=== PATIENT | male | born 1930 | race Caucasian/White ===

== ENCOUNTER 2016-12-06 01:23 | Inpatient (IN) | payer OTHER ==
[~2016-12-06] VITALS: Ht 165.1 cm; Wt 62.2 kg
[~2016-12-06 01:23] MED LIST: AMOX1TAB61 PO; ASPI325T4 PO; ATOR20TA9 PO; CARV3.122 PO; FURO20TA3 PO; LISI5TAB7 PO; POTA20PA8 PO
[2016-12-06] MEDS ORDERED: SODIUM CHLORIDE 0.9% 1,000 ML IV ONE (01:49)
[2016-12-06] MEDS ORDERED: SODIUM CHLORIDE FLUSH 10ML SYR IVF ONE (02:00)
[2016-12-06 02:41] LABS: BLOOD UREA NITROGEN 26 mg/dL (7-18)
[2016-12-06 02:43] LABS: ASPARTATE AMINO TRANSFERASE 40 U/L (15-37)
[2016-12-06 02:46] LABS: IS PT STATUS REG ER OR PRE ER? YES
[2016-12-06] MEDS ORDERED: CEFAZOLIN PMX 1GM/50ML 50 ML ONE (02:46)
[2016-12-06] MEDS ORDERED: CEFAZOLIN PMX 1GM/50ML 50 ML IV ONE (03:00)
[2016-12-06] MEDS ORDERED: ASPIRIN 325 MG TABLET PO ONE (03:00)
[2016-12-06] MEDS ORDERED: FUROSEMIDE 40 MG/4 ML IV ONE (03:30)
[2016-12-06] MEDS ORDERED: FUROSEMIDE 40 MG/4 ML ONE (03:40)
[2016-12-06] MEDS ORDERED: ASPIRIN 325 MG TABLET ONE (03:40)
[2016-12-06] MEDS ORDERED: DOCUSATE 100 MG CAPSULE PO PRN (04:00)
[2016-12-06] MEDS ORDERED: POLYETHYLENE GLYCOL 17 GM PACKET PO PRN (04:00)
[2016-12-06] MEDS ORDERED: ACETAMINOPHEN 325 MG TABLET PO PRN (04:00)
[2016-12-06] MEDS ORDERED: ONDANSETRON 2MG/ML, 2ML IVP PRN (04:00)
[2016-12-06] MEDS ORDERED: BISACODYL 10 MG SUPP PR PRN (04:00)
[2016-12-06] MEDS ORDERED: ENOXAPARIN 40 MG/0.4 ML ONE (04:01)
[2016-12-06] MEDS: ENOXAPARIN 40 MG/0.4 ML SQ SCH (04:07)
[2016-12-06 05:30] VITALS: BP 101/53
[2016-12-06] MEDS ORDERED: CARVEDILOL 3.125 MG TABLET PO SCH (06:00)
[2016-12-06 08:20] VITALS: BP 98/60
[2016-12-06 09:00] LABS: IS PT STATUS REG ER OR PRE ER? NO
[2016-12-06] MEDS ORDERED: CEFTAROLINE 600 MG in SODIUM CHLORIDE 0.9% 100 ML IV SCH (09:00)
[2016-12-06] MEDS ORDERED: LISINOPRIL 5 MG TABLET PO SCH (09:00)
[2016-12-06] MEDS: ASPIRIN 81 MG TABLET EC PO SCH (09:08)
[2016-12-06] MEDS: FUROSEMIDE 20 MG/2 ML IV SCH (09:11)
[2016-12-06] MEDS: SODIUM CHLORIDE FLUSH 10ML SYR IVF SCH ×2 (09:11→20:16)
[2016-12-06] MEDS: CEFTRIAXONE PMX 1GM/50ML 50 ML IV SCH (13:03)
[2016-12-06 13:28] VITALS: BP 91/41
[2016-12-06 13:34] VITALS: BP 92/57
[2016-12-06 16:06] LABS: IS PT STATUS REG ER OR PRE ER? NO
[2016-12-06 16:29] VITALS: BP 86/44
[2016-12-06] MEDS: CARVEDILOL 3.125 MG TABLET PO SCH (16:33)
[2016-12-06 20:00] VITALS: BP 94/50
[2016-12-06] MEDS: ATORVASTATIN 40 MG TABLET PO SCH (20:14)
[2016-12-07] VITALS (8 sets, daily range): BP systolic 75–108; BP diastolic 44–69
[2016-12-07] MEDS ORDERED: SODIUM CHLORIDE 0.9%, 500ML IVBOLUS ONE (05:00)
[2016-12-07 05:22] LABS: BLOOD UREA NITROGEN 25 mg/dL (7-18)
[2016-12-07] MEDS: CARVEDILOL 3.125 MG TABLET PO SCH ×2 (05:28→18:00)
[2016-12-07] MEDS: ENOXAPARIN 40 MG/0.4 ML SQ SCH (05:28)
[2016-12-07] MEDS: LISINOPRIL 5 MG TABLET PO SCH (09:00)
[2016-12-07] MEDS: FUROSEMIDE 20 MG/2 ML IV SCH (09:00)
[2016-12-07] MEDS ORDERED: DOPAMINE/D5W PMX 250 ML IV SCH (09:00)
[2016-12-07] MEDS: CEFTRIAXONE PMX 1GM/50ML 50 ML IV SCH (13:12)
[2016-12-07] MEDS: SODIUM CHLORIDE FLUSH 10ML SYR IVF SCH ×2 (13:18→22:45)
[2016-12-07] MEDS: ASPIRIN 81 MG TABLET EC PO SCH (13:18)
[2016-12-07] MEDS: ATORVASTATIN 40 MG TABLET PO SCH (21:11)
[2016-12-08] MEDS ORDERED: SODIUM CHLORIDE 0.9% 1,000 ML IV SCH (01:30)
[2016-12-08 04:48] LABS: BLOOD UREA NITROGEN 23 mg/dL (7-18)
[2016-12-08] MEDS: CARVEDILOL 3.125 MG TABLET PO SCH ×2 (05:43→17:29)
[2016-12-08] MEDS: ENOXAPARIN 40 MG/0.4 ML SQ SCH (05:43)
[2016-12-08] MEDS ORDERED: SODIUM CHLORIDE 0.9% 250 ML IV ONE (09:00)
[2016-12-08] MEDS ORDERED: DOPAMINE/D5W PMX 250 ML IV SCH (09:00)
[2016-12-08] MEDS: LISINOPRIL 5 MG TABLET PO SCH (09:00)
[2016-12-08] MEDS: DOPAMINE/D5W PMX 250 ML IV SCH ×2 (09:29→17:35)
[2016-12-08] MEDS: SODIUM CHLORIDE FLUSH 10ML SYR IVF SCH ×2 (11:27→22:45)
[2016-12-08] MEDS ORDERED: SODIUM CHLORIDE 0.9%, 250ML IVBOLUS ONE ×3 (11:30→17:30)
[2016-12-08] MEDS: FUROSEMIDE 20 MG/2 ML IV SCH (11:52)
[2016-12-08] MEDS: ASPIRIN 81 MG TABLET CHEW PO SCH (11:53)
[2016-12-08] MEDS: CEFTRIAXONE PMX 1GM/50ML 50 ML IV SCH (11:54)
[2016-12-08] MEDS: ATORVASTATIN 40 MG TABLET PO SCH (22:43)
[2016-12-09] MEDS: AMPICILLIN 2 GM in SODIUM CHLORIDE 0.9% 100 ML IV SCH ×5 (00:09→23:44)
[2016-12-09 04:45] LABS: BLOOD UREA NITROGEN 23 mg/dL (7-18)
[2016-12-09 04:51] LABS: ASPARTATE AMINO TRANSFERASE 24 U/L (15-37); IS PT STATUS REG ER OR PRE ER? NO
[2016-12-09] MEDS: DOPAMINE/D5W PMX 250 ML IV SCH (05:26)
[2016-12-09] MEDS: ENOXAPARIN 40 MG/0.4 ML SQ SCH (05:36)
[2016-12-09] MEDS ORDERED: VASOPRESSIN 100 UNIT in SODIUM CHLORIDE 0.9% 495 ML IV PRN (09:00)
[2016-12-09] MEDS ORDERED: MAGNESIUM SULFATE PMX 2GM/50ML 50 ML IVPB ONE (09:00)
[2016-12-09] MEDS ORDERED: NOREPINEPHRINE 4 MG in SODIUM CHLORIDE 0.9% 246 ML IV PRN (09:00)
[2016-12-09] MEDS: ASPIRIN 81 MG TABLET CHEW PO SCH (10:00)
[2016-12-09] MEDS: INSULIN ASPART 100 UNITS/ML, PEN SQ-INSULIN SCH ×4 (10:28→20:40)
[2016-12-09] MEDS: SODIUM CHLORIDE FLUSH 10ML SYR IVF SCH ×2 (12:45→20:34)
[2016-12-09] MEDS ORDERED: NOREPINEPHRINE 8 MG in SODIUM CHLORIDE 0.9% 242 ML IV PRN (16:30)
[2016-12-09] MEDS ORDERED: SODIUM CHLORIDE 0.9%, 250ML IVBOLUS ONE (17:30)
[2016-12-09] MEDS: HYDROCORTISONE 100 MG INJ. IVPush SCH (20:31)
[2016-12-09] MEDS: ATORVASTATIN 40 MG TABLET PO SCH (20:33)
[2016-12-10] MEDS ORDERED: SODIUM CHLORIDE 0.9% 1,000 ML IV SCH (01:30)
[2016-12-10 06:25] LABS: BLOOD UREA NITROGEN 19 mg/dL (7-18)
[2016-12-10 06:39] LABS: ASPARTATE AMINO TRANSFERASE 20 U/L (15-37)
[2016-12-10] MEDS: AMPICILLIN 2 GM in SODIUM CHLORIDE 0.9% 100 ML IV SCH ×3 (06:42→17:49)
[2016-12-10] MEDS: ENOXAPARIN 40 MG/0.4 ML SQ SCH (06:42)
[2016-12-10] MEDS: HYDROCORTISONE 100 MG INJ. IVPush SCH ×3 (08:52→23:55)
[2016-12-10] MEDS: INSULIN ASPART 100 UNITS/ML, PEN SQ-INSULIN SCH ×4 (08:52→21:30)
[2016-12-10] MEDS ORDERED: POTASSIUM CHLORIDE 20 MEQ TAB.ER.PRT PO ONE (10:30)
[2016-12-10] MEDS: ASPIRIN 81 MG TABLET CHEW PO SCH (10:33)
[2016-12-10] MEDS: SODIUM CHLORIDE FLUSH 10ML SYR IVF SCH ×2 (10:34→21:24)
[2016-12-10] MEDS: FUROSEMIDE 20 MG/2 ML IV SCH ×2 (10:34→18:40)
[2016-12-10] MEDS: MEGESTROL ORAL.SUSP 40 MG/ML PO SCH (11:30)
[2016-12-10] MEDS: ATORVASTATIN 40 MG TABLET PO SCH (21:24)
[2016-12-11] MEDS: AMPICILLIN 2 GM in SODIUM CHLORIDE 0.9% 100 ML IV SCH ×4 (00:09→21:15)
[2016-12-11] MEDS: ENOXAPARIN 40 MG/0.4 ML SQ SCH (04:06)
[2016-12-11] MEDS: FUROSEMIDE 20 MG/2 ML IV SCH ×4 (04:06→21:12)
[2016-12-11 04:30] VITALS: BP 110/55
[2016-12-11 06:35] LABS: BLOOD UREA NITROGEN 17 mg/dL (7-18)
[2016-12-11 06:38] LABS: ASPARTATE AMINO TRANSFERASE 28 U/L (15-37)
[2016-12-11] MEDS: INSULIN ASPART 100 UNITS/ML, PEN SQ-INSULIN SCH ×4 (07:00→21:09)
[2016-12-11] MEDS ORDERED: MAGNESIUM SULFATE PMX 2GM/50ML 50 ML IV ONE (08:00)
[2016-12-11] MEDS: HYDROCORTISONE 100 MG INJ. IVPush SCH ×2 (08:44→17:07)
[2016-12-11] MEDS: ASPIRIN 81 MG TABLET CHEW PO SCH (08:44)
[2016-12-11] MEDS: MEGESTROL ORAL.SUSP 40 MG/ML PO SCH (08:44)
[2016-12-11] MEDS: SODIUM CHLORIDE FLUSH 10ML SYR IVF SCH ×2 (08:45→21:16)
[2016-12-11 11:00] VITALS: BP 104/64
[2016-12-11 19:39] VITALS: BP 109/62
[2016-12-11] MEDS: ATORVASTATIN 40 MG TABLET PO SCH (21:04)
[2016-12-12] MEDS: HYDROCORTISONE 100 MG INJ. IVPush SCH ×3 (00:46→18:03)
[2016-12-12] MEDS: FUROSEMIDE 20 MG/2 ML IV SCH ×3 (01:45→20:02)
[2016-12-12] MEDS: AMPICILLIN 2 GM in SODIUM CHLORIDE 0.9% 100 ML IV SCH ×4 (01:45→20:05)
[2016-12-12 02:02] VITALS: BP 111/67
[2016-12-12] MEDS: ENOXAPARIN 40 MG/0.4 ML SQ SCH (04:09)
[2016-12-12 06:00] LABS: BLOOD UREA NITROGEN 17 mg/dL (7-18)
[2016-12-12 07:26] VITALS: BP 115/61
[2016-12-12] MEDS: INSULIN ASPART 100 UNITS/ML, PEN SQ-INSULIN SCH ×4 (08:29→21:00)
[2016-12-12] MEDS: SODIUM CHLORIDE FLUSH 10ML SYR IVF SCH ×2 (08:31→21:43)
[2016-12-12] MEDS: ASPIRIN 81 MG TABLET CHEW PO SCH (08:32)
[2016-12-12] MEDS: MEGESTROL ORAL.SUSP 40 MG/ML PO SCH (08:32)
[2016-12-12] MEDS ORDERED: POTASSIUM CHLORIDE 20 MEQ TAB.ER.PRT PO ONE (12:00)
[2016-12-12 13:03] VITALS: BP 99/55
[2016-12-12 19:43] VITALS: BP 116/69
[2016-12-12] MEDS: ATORVASTATIN 40 MG TABLET PO SCH (21:43)
[2016-12-13 01:40] VITALS: BP 114/61
[2016-12-13] MEDS: HYDROCORTISONE 100 MG INJ. IVPush SCH ×2 (02:13→11:24)
[2016-12-13] MEDS: AMPICILLIN 2 GM in SODIUM CHLORIDE 0.9% 100 ML IV SCH ×4 (02:14→20:57)
[2016-12-13] MEDS: FUROSEMIDE 20 MG/2 ML IV SCH (04:17)
[2016-12-13] MEDS: ENOXAPARIN 40 MG/0.4 ML SQ SCH (04:17)
[2016-12-13] MEDS: INSULIN ASPART 100 UNITS/ML, PEN SQ-INSULIN SCH ×4 (07:00→20:57)
[2016-12-13 07:05] VITALS: BP 105/65
[2016-12-13] MEDS: ASPIRIN 81 MG TABLET CHEW PO SCH (08:13)
[2016-12-13] MEDS: MEGESTROL ORAL.SUSP 40 MG/ML PO SCH (08:13)
[2016-12-13] MEDS: SODIUM CHLORIDE FLUSH 10ML SYR IVF SCH ×2 (08:14→20:57)
[2016-12-13 12:57] LABS: ASPARTATE AMINO TRANSFERASE 38 U/L (15-37); BLOOD UREA NITROGEN 21 mg/dL (7-18)
[2016-12-13 13:25] VITALS: BP 103/52
[2016-12-13] MEDS: FUROSEMIDE 20 MG TABLET PO SCH (17:08)
[2016-12-13 18:51] VITALS: BP 100/54
[2016-12-13] MEDS: DRONABINOL 2.5 MG CAPSULE PO SCH (20:57)
[2016-12-13] MEDS: ATORVASTATIN 40 MG TABLET PO SCH (20:57)
[2016-12-14 01:08] VITALS: BP 100/62
[2016-12-14] MEDS: AMPICILLIN 2 GM in SODIUM CHLORIDE 0.9% 100 ML IV SCH ×4 (02:35→20:35)
[2016-12-14] MEDS: ENOXAPARIN 40 MG/0.4 ML SQ SCH (05:23)
[2016-12-14 05:57] LABS: ASPARTATE AMINO TRANSFERASE 34 U/L (15-37); BLOOD UREA NITROGEN 24 mg/dL (7-18)
[2016-12-14] MEDS: INSULIN ASPART 100 UNITS/ML, PEN SQ-INSULIN SCH ×4 (07:00→20:36)
[2016-12-14 08:37] VITALS: BP 110/61
[2016-12-14] MEDS: SODIUM CHLORIDE FLUSH 10ML SYR IVF SCH ×2 (09:00→20:35)
[2016-12-14] MEDS ORDERED: MAGNESIUM SULFATE PMX 2GM/50ML 50 ML IV ONE (09:00)
[2016-12-14] MEDS ORDERED: POTASSIUM CHLORIDE 20 MEQ PACKET PO ONE (09:00)
[2016-12-14] MEDS: ASPIRIN 81 MG TABLET CHEW PO SCH (09:37)
[2016-12-14] MEDS: FUROSEMIDE 20 MG TABLET PO SCH ×2 (09:37→18:03)
[2016-12-14] MEDS: DRONABINOL 2.5 MG CAPSULE PO SCH ×2 (09:37→20:46)
[2016-12-14] MEDS: TAMSULOSIN 0.4 MG CAP.ER.24H PO SCH (10:39)
[2016-12-14] MEDS: POTASSIUM CHLORIDE 20 MEQ PACKET PO SCH ×2 (13:09→20:35)
[2016-12-14 14:34] VITALS: BP_SYST 110; BP_SYST 111; BP_SYST 120; BP_DIAS 60; BP_DIAS 66; BP_DIAS 70
[2016-12-14] MEDS: METRONIDAZOLE PMX 500MG/100ML 100 ML IV SCH ×2 (16:13→22:43)
[2016-12-14 16:43] LABS: BLOOD UREA NITROGEN 27 mg/dL (7-18)
[2016-12-14 19:01] VITALS: BP 94/60
[2016-12-14] MEDS: ATORVASTATIN 40 MG TABLET PO SCH (20:35)
[2016-12-15 01:47] VITALS: BP 89/55
[2016-12-15] MEDS: AMPICILLIN 2 GM in SODIUM CHLORIDE 0.9% 100 ML IV SCH ×2 (02:07→08:17)
[2016-12-15] MEDS: ENOXAPARIN 40 MG/0.4 ML SQ SCH (05:58)
[2016-12-15] MEDS: METRONIDAZOLE PMX 500MG/100ML 100 ML IV SCH ×4 (06:00→23:07)
[2016-12-15 06:10] LABS: BLOOD UREA NITROGEN 29 mg/dL (7-18)
[2016-12-15 06:15] LABS: ASPARTATE AMINO TRANSFERASE 52 U/L (15-37)
[2016-12-15] MEDS: INSULIN ASPART 100 UNITS/ML, PEN SQ-INSULIN SCH ×4 (07:00→23:07)
[2016-12-15] MEDS: POTASSIUM CHLORIDE 20 MEQ PACKET PO SCH ×2 (08:16→23:07)
[2016-12-15] MEDS: TAMSULOSIN 0.4 MG CAP.ER.24H PO SCH (08:16)
[2016-12-15] MEDS: DRONABINOL 2.5 MG CAPSULE PO SCH ×2 (08:16→23:07)
[2016-12-15] MEDS: ASPIRIN 81 MG TABLET CHEW PO SCH (08:17)
[2016-12-15] MEDS: FUROSEMIDE 20 MG TABLET PO SCH ×2 (08:17→16:01)
[2016-12-15] MEDS: SODIUM CHLORIDE FLUSH 10ML SYR IVF SCH ×2 (08:17→23:08)
[2016-12-15 08:26] VITALS: BP 93/57
[2016-12-15] MEDS: VANCOMYCIN 50 MG/ML ORAL SUSP PO SCH ×3 (10:05→23:07)
[2016-12-15 12:38] VITALS: BP 99/61
[2016-12-15 20:19] VITALS: BP 107/66
[2016-12-15] MEDS: ATORVASTATIN 40 MG TABLET PO SCH (23:06)
[2016-12-16 02:24] VITALS: BP 109/64
[2016-12-16] MEDS: VANCOMYCIN 50 MG/ML ORAL SUSP PO SCH ×2 (03:45→08:22)
[2016-12-16] MEDS: METRONIDAZOLE PMX 500MG/100ML 100 ML IV SCH (05:34)
[2016-12-16] MEDS: ENOXAPARIN 40 MG/0.4 ML SQ SCH (05:34)
[2016-12-16 05:56] LABS: BLOOD UREA NITROGEN 29 mg/dL (7-18)
[2016-12-16 07:08] VITALS: BP 106/58
[2016-12-16] MEDS: INSULIN ASPART 100 UNITS/ML, PEN SQ-INSULIN SCH ×2 (08:21→12:08)
[2016-12-16] MEDS: ASPIRIN 81 MG TABLET CHEW PO SCH (08:22)
[2016-12-16] MEDS: SODIUM CHLORIDE FLUSH 10ML SYR IVF SCH (08:22)
[2016-12-16] MEDS: TAMSULOSIN 0.4 MG CAP.ER.24H PO SCH (08:22)
[2016-12-16] MEDS: DRONABINOL 2.5 MG CAPSULE PO SCH (08:22)
[2016-12-16] MEDS: POTASSIUM CHLORIDE 20 MEQ PACKET PO SCH (08:22)
[2016-12-16] MEDS: FUROSEMIDE 20 MG TABLET PO SCH (08:22)
[2016-12-16] MEDS ORDERED: ASPI-515 PO (10:22)
[2016-12-16] MEDS ORDERED: DRON2.5C2 PO (10:22)
[2016-12-16] MEDS ORDERED: METR500T PO (10:22)
[2016-12-16] MEDS ORDERED: ATOR40TA78 PO (10:22)
[2016-12-16] MEDS ORDERED: FURO20TA3 PO (10:22)
[2016-12-16] MEDS ORDERED: TAMS-11 PO (10:22)
[2016-12-16] MEDS ORDERED: AMOX-291 PO (10:36)
[2016-12-16] MEDS ORDERED: POTA10TA11 PO (10:38)
[2016-12-16 12:24] VITALS: BP 103/57
== END 2016-12-16 14:30 | DRG 871 ==
LOC: ED 02:45 → EDIP 03:12 → 5SO 05:18 → CCU 12-07 23:54 → 4EST 12-11 10:53
PROC: 0T9B70Z Drainage of Bladder with Drainage Device, Via Natural or Artificial Opening (ICD-10-PCS; principal; 2016-12-06)
PROC: 02HV33Z Insertion of Infusion Device into Superior Vena Cava, Percutaneous Approach (ICD-10-PCS; 2016-12-08)
PROC: B548ZZA Ultrasonography of Superior Vena Cava, Guidance (ICD-10-PCS; 2016-12-08)
DX: A41.9 Sepsis, unspecified organism (principal); I50.43 Acute on chronic combined systolic (congestive) and diastolic (congestive) heart failure; E43 Unspecified severe protein-calorie malnutrition; L03.115 Cellulitis of right lower limb; N39.0 Urinary tract infection, site not specified; R64 Cachexia; A04.7 Enterocolitis due to Clostridium difficile; B95.2 Enterococcus as the cause of diseases classified elsewhere; I11.0 Hypertensive heart disease with heart failure; E11.9 Type 2 diabetes mellitus without complications; I25.10 Atherosclerotic heart disease of native coronary artery without angina pectoris; R13.10 Dysphagia, unspecified; R47.81 Slurred speech; I25.2 Old myocardial infarction; I25.5 Ischemic cardiomyopathy; I37.1 Nonrheumatic pulmonary valve insufficiency; R62.7 Adult failure to thrive; I35.8 Other nonrheumatic aortic valve disorders; Z79.82 Long term (current) use of aspirin; E86.0 Dehydration; Z87.01 Personal history of pneumonia (recurrent); Z87.891 Personal history of nicotine dependence; Z95.0 Presence of cardiac pacemaker; Z68.22 Body mass index [BMI] 22.0-22.9, adult
CPT/HCPCS: 36415; 36569; 70450; 71010; 74230; 76937; 77001; 80048; 80053; 80061; 81001; 82040; 82533; 82962; 83735; 83880; 84436; 84443; 84484; 85025; 85610; 87040; 87077; 87081; 87086; 87186; 87324; 87493; 93005; 93306; 93880; 96374; J0290; J0690; J0696; J0712; J1265; J1650; J1815; J1940; J3370; Q0167; C1751; J1720; J3475; J7030; J7040; J7050; J7512